=== PATIENT | male | born 1955 | race Caucasian/White ===

== ENCOUNTER → 2016-09-14 | Outpatient (CLI) | payer OTHER ==
[~2016-09-14] MED LIST: CLARITIN10 M3 PO; FLOMAX0.4 M1 PO; FLONASE 0.05% N16 G1; HYDROCHLOROTHIA25 MG PO; HYDROXYZINE PAM25 M1 PO; INDERAL LA60 M1 PO; LASIX20 MG PO; LIPITOR20 MG PO; MULTI VITAMIN1 EACH PO; PERCOCET; PRILOSEC PO; SINGULAIR PO; VITAMIN E400 UNI2 PO; XARELTO10 MG PO; ZOLOFT50 MG PO; ZYRTEC10 M1 PO
--- NOTE | ~2016-09-14 | EKG ---
PATIENT: ISAEL OCONNOR UNIT #: [id number] Ventricular Rate: 68 BPM Atrial Rate: 68 BPM P-R Interval: 134 ms QRS Duration: 108 ms Q-T Interval: 430 ms QTC Calculation(Bezet): 457 ms P [place]: 46 degrees Calculated R [place]: 41 degrees Calculated T [place]: 85 degrees Diagnosis Line: Normal sinus rhythm Diagnosis Line: Normal ECG Diagnosis Line: No previous ECGs available Diagnosis Line: Confirmed by MATTHEW DESOUZA MD ([id number]) on 09/15/2016 Diagnosis Line: 3:30:53 PM INTERPRETING MD: LYLY MÁRQUEZ
[2016-09-14 14:47] LABS: URINE APPEARANCE CLEAR; URINE BILIRUBIN NEG (NEG); URINE BLOOD NEG (NEG); URINE COLOR YELLOW; URINE GLUCOSE NEG (NEG); URINE KETONE NEG (NEG); URINE LEUKOCYTE ESTERASE NEG (NEG); URINE NITRATE NEG (NEG); URINE PROTEIN TRACE (NEG)
[2016-09-14 14:50] LABS: HEMATOCRIT 45.8 % (38.0-50.0); HEMOGLOBIN 15.5 gm/dL (13.0-16.0); MEAN CELL VOLUME 90.6 FL (83-96); MEAN CORPUSCULAR HEMOGLOBIN 30.8 PG (28-34); MEAN PLATELET VOLUME 10.8 FL (6.5-11.5); RED BLOOD COUNT 5.05 X10e (3.90-5.60); RED CELL DISTRIBUTION WIDTH 13.1 % (11.0-15.5); WHITE BLOOD COUNT 6.3 X10e3 (4.0-10.5)
[2016-09-14 14:53] LABS: URINE SOURCE CLEAN CATCH
[2016-09-14 14:54] LABS: CULTURE INDICATED? NO
[2016-09-14 15:13] LABS: CALCIUM SERUM 9.3 mg/dL (8.4-10.2); GLOM FILT RATE Estimated 80.9 mL/min (>60); POTASSIUM 3.8 mmol/L (3.5-5.1)
== END | disposition home or self-care (01) ==
LOC: CAMB 13:28
PROVIDERS: Orthopaedic Surgery
DX: Z01.818 Encounter for other preprocedural examination (principal); M17.12 Unilateral primary osteoarthritis, left knee
CPT/HCPCS: 36415; 80048; 81003; 85027; 87070; 93005

== ENCOUNTER 2016-09-25 06:38 | Inpatient (IN) | payer OTHER ==
--- NOTE | ~2016-09-25 | BMI ---
[facility] Nutrition Therapy DATE: 09/26/16 Patient: ISAEL OCONNOR Physician: CORRINA Address: [facility] AGUILAR CRUZ Room/Bed: [address] [place] [address], Zip: [place] [address] Admit Date: 09/25/16 Date of : 55 Height: Weight: HIGH BMI NOTE: DX: 61 Y.O. MALE ADMITTED FOR LEFT KNEE OA ANTHROPOMETRICS: 5'10", WT: 282# (128.5 KG), BMI: 40.5 DIET: REGULAR RECOMMENDATIONS: 1. RECOMMEND TO CHANGE CURRENT DIET ORDER TO HEALTHY HEART TO PROMOTE GRADUAL WEIGHT LOSS TOWARDS HEALTHY BMI (19.0-25.0) OR +/-10%IBW RD WILL F/U PER PROTOCOL Respectfully, AIYANA SUTTON MS, RD, LD Food and Nutritional Services [facility] cc: client file
--- NOTE | ~2016-09-25 | DS ---
Unit #: [id number] #: [id number] Patient: ISAEL OCONNOR [id number] [address] [address] [id number] MR#: [id number] NAME: ISAEL OCONNOR ROOM: 479 Age: 61 Sex: M Admission Date: 09/25/2016 : 1955 Discharge Date: 09/26/2016 Attending Physician: Dom Lomas M.D. Referring Physician: Dom Lomas M.D. Primary Care Physician: Vivian Holt M.D. DISCHARGE SUMMARY DIAGNOSIS Osteoarthritis, left knee. HOSPITAL COURSE AND TREATMENT The patient was admitted on 09/25/2016, and underwent a left total knee arthroplasty. There were no complications. He was started with physical therapy the night of surgery and has been tolerating oral pain medications. On 09/26/2016, he achieved 96 degrees of flexion, 0 extension and is able to do a straight leg raise. His wound is clean and dry. His hemoglobin is 11.4. He will be discharged home to follow up with me this week. Dictated by... Shaka Quinones/le TD: 09/27/2016 04:06 JOB #: [id number] DISCHARGE SUMMARY Page 1 of 1 X Rhett Lomas MD X DISCHARGE SUMMARY
--- NOTE | ~2016-09-25 | OR ---
Unit #: [id number] #: [id number] Patient: ISAEL OCONNOR [id number] [address] [place], [place] [address] [id number] MR#: [id number] NAME: ISAEL OCONNOR ROOM: 479 Date of Procedure: 09/25/2016 Admission Date: 09/25/2016 Surgeon: Dom Lomas M.D. : 1955 Attending Physician: Dom Lomas M.D. Referring Physician: Dom Lomas M.D. Primary Care Physician: Vivian Holt M.D. PROCEDURE OPERATIVE NOTE PREOPERATIVE DIAGNOSIS Osteoarthritis of left knee. POSTOPERATIVE DIAGNOSIS Osteoarthritis of left knee. PROCEDURE PERFORMED Total knee arthroplasty of left knee. IMPLANTS USED DePuy Attune #7 femur, #6 tibia, 7 mm tibial insert, 41 mm dome patella. [employer]. DESCRIPTION OF PROCEDURE After obtaining informed consent, he was taken to the operating room and placed in a supine position. After adequate induction of general anesthesia, he was prepped and draped in a sterile fashion. A midline incision was made and the extensor mechanism was exposed through full-thickness flaps. A medial parapatellar incision was made to enter the joint. Bovie was used to resect part of the fat pad and take some of the periosteum down medially. The patella was everted and osteophytes were removed from both the tibia and the femur. The knee was then flexed. The menisci were both removed. The ACL was removed. A posterior retractor was used to deliver the tibia and the posteromedial spurs were removed. At this point, a drill was used to open the femoral canal. The distal femoral cutting guide was placed in 5 degrees of valgus with a 9-mm distal femoral resection. It was pinned in place. Distal cuts were made. The tibial guide was then placed onto the tibia and it was aligned with the tibial crest and it was set to 5 degrees of posterior slope. Alignment rods were used to check the alignment in 2 planes. It was pinned in place. It was set to resect 9 mm from the highest point of the tibia on the lateral side. The cut was made. It was freshened then by re-cutting with the saw. At this point, the extension gap was checked. It was found to be a little loose with the 6. The 7 fit better with 1 to 2 mm of play on each side. The femur was then flexed. The measured guide was then placed. It measured between a 6 and a 7. The anterior referencing pins were used and a 6-mm block was placed. The flexion gap was loose with a 7-mm spacer. Therefore, a 7-mm distal femoral cutting block was used and this was found to create a perfect flexion gap using a 7 spacer. It was pinned in place. The anterior, posterior, and chamfer Unit #: [id number] #: [id number] Patient: ISAEL OCONNOR cuts were made. A finishing guide was then used to make the sulcus cut and also to resect any posterior osteophytes. A trial was then placed. The tibia was measured and found to be a size 6. A 7-mm implant was used to check rotation. The tibial tray was marked. It was then flexed and the tray was drilled and punched using the keel punch. A 7-mm trial was again placed. It was found to go into full extension and full flexion with a symmetric flexion-extension gap. There was no liftoff of the tray. At this point, the patella was addressed. Using the cutting guide, 9.5 mm was resected. It was measured and found to be 41 mm. Using the handle, the alignment was checked by flexing the knee and aligning the handle parallel to the joint. It was then drilled. The knee was copiously irrigated. All blood was removed from the bones. Periarticular injection was used in the posterior compartment and in the periosteum. The cement was mixed and the implants were cemented in place. After cementing, a 7-mm trial was again used and it was found to be perfect. Therefore, 7-mm implant was used. The knee was then copiously irrigated. It was filled with saline solution containing Betadine paint in a ratio of 500 mL to 18 mL. This was left for a total of 5 minutes. Hemostasis was obtained. TXA was given. The tourniquet was released. Hemostasis was meticulously obtained. It was then irrigated again. The extensor mechanism was closed with #1 Vicryl. The skin was closed with 2-0 and 3-0 Vicryl. Prineo dressing was placed. He tolerated the procedure well and was sent to recovery room, stable. Dictated by... Shaka Quinones/le TD: 09/26/2016 00:10 JOB #: [id number] PROCEDURE OPERATIVE NOTE Page 1 of 1 X Rhett Lomas MD X PROCEDURE OPERATIVE NOTE
[~2016-09-25 06:38] MED LIST changes: -CLARITIN10 M3 PO; -FLOMAX0.4 M1 PO; -FLONASE 0.05% N16 G1; -HYDROXYZINE PAM25 M1 PO; -INDERAL LA60 M1 PO; -MULTI VITAMIN1 EACH PO; -PERCOCET; -PRILOSEC PO; -XARELTO10 MG PO; -ZOLOFT50 MG PO
[2016-09-25] MEDS ORDERED: FLONASE 0.05% N16 G1 (12:50)
[2016-09-25] MEDS ORDERED: PRILOSEC PO (12:51)
[2016-09-25] MEDS ORDERED: MULTI VITAMIN1 EACH PO (12:52)
[2016-09-25] MEDS ORDERED: FLOMAX0.4 M1 PO (12:52)
[2016-09-25] MEDS ORDERED: ZOLOFT50 MG PO (12:52)
[2016-09-25 13:25] LABS: HEMATOCRIT 46.1 % (38.0-50.0); HEMOGLOBIN 15.6 gm/dL (13.0-16.0)
[2016-09-25] MEDS ORDERED: INDERAL LA60 M1 PO (14:07)
[2016-09-25] MEDS ORDERED: HYDROCHLOROTHIA25 MG PO (14:07)
[2016-09-25] MEDS ORDERED: CLARITIN10 M3 PO (14:08)
[2016-09-26 03:31] LABS: BASOPHIL% 0.3 % (0-2.5); EOSINOPHIL# 0.1 X10e3 (0-0.7); EOSINOPHIL% 0.6 % (0.0-7.0); HEMATOCRIT 40.8 % (38.0-50.0); HEMOGLOBIN 13.8 gm/dL (13.0-16.0); LYMPHOCYTE# 1.9 X10e3 (1.0-3.5); LYMPHOCYTE% 16.4 % (17.0-45.0); MEAN CORPUSCULAR HEMOGLOBIN 30.8 PG (28-34); MEAN CORPUSCULAR HGB CONC 33.8 g/dL (30-36); MEAN PLATELET VOLUME 10.4 FL (6.5-11.5); MONOCYTE# 1.1 X10e3 (0-1.0); MONOCYTE% 9.7 % (3.0-12.0); NEUTROPHIL# 8.3 X10e3 (1.5-7.1); PLATELET COUNT 133 X10e3 (140-420); RED BLOOD COUNT 4.49 X10e (3.90-5.60); RED CELL DISTRIBUTION WIDTH 13.3 % (11.0-15.5); WHITE BLOOD COUNT 11.4 X10e3 (4.0-10.5)
[2016-09-26 03:38] LABS: DIFF IND NO
[2016-09-26] MEDS ORDERED: XARELTO10 MG PO (12:01)
== END 2016-09-26 12:55 | disposition home health service (06) | DRG 470 ==
LOC: CSUR 06:38 → CPACUOF 10:00 → CSUR 10:00 → CPACUOF 12:10 → CSUR 12:10 → CPACUOF 12:40 → C4C 14:25
PROVIDERS: Orthopaedic Surgery
PROC: 0SRD0J9 Replacement of Left Knee Joint with Synthetic Substitute, Cemented, Open Approach (ICD-10-PCS; principal; 2016-09-25 10:00)
DX: M17.12 Unilateral primary osteoarthritis, left knee (principal); I10 Essential (primary) hypertension; K21.9 Gastro-esophageal reflux disease without esophagitis
CPT/HCPCS: 82947; 85014; 85018; 85025; 94760; 97110; 97116; 97161; C1776; G8978-GP; G8979-GP; J0171; J0690; J0735; J1100; J1170; J1885; J2250; J2405; J2795; J3010

== ENCOUNTER 2016-11-10 17:53 | Emergency (ER) | payer OTHER ==
[~2016-11-10 17:53] MED LIST changes: +CLARITIN10 M3 PO; +FLOMAX0.4 M1 PO; +FLONASE 0.05% N16 G1; +INDERAL LA60 M1 PO; +MULTI VITAMIN1 EACH PO; +PRILOSEC PO; +XARELTO10 MG PO; +ZOLOFT50 MG PO
[2016-11-10] MEDS ORDERED: PERCOCET (18:10)
[2016-11-10] MEDS ORDERED: HYDROXYZINE PAM25 M1 PO (18:10)
== END 2016-11-10 20:13 | disposition home or self-care (01) ==
LOC: SED 17:53
DX: T78.3XXA Angioneurotic edema, initial encounter (principal); T78.40XA Allergy, unspecified, initial encounter; Z79.899 Other long term (current) drug therapy
CPT/HCPCS: 99283